=== PATIENT | male | born 1970 | race Two or more races ===

== ENCOUNTER 2017-02-09 15:51 | Inpatient (IN) | payer OTHER ==
[~2017-02-09] VITALS: Ht 175.3 cm; Wt 87.2 kg
[2017-02-09] MEDS ORDERED: TDAP [DIPH/PERTUSSIS/TET] 0.5 ML VIAL IM ONE ×2 (16:19→16:30)
[2017-02-09 16:53] LABS: BASOPHILS # (AUTO) 0.1 /CMM (0.0-0.2); EOSINOPHILS # (AUTO) 0.1 /CMM (0.0-0.7); EOSINOPHILS % (AUTO) 0.4 % (0.0-6.0); HEMATOCRIT 45 % (39-51); HEMOGLOBIN 14.4 g/dL (13.5-17.5); LYMPHOCYTES # (AUTO) 2.5 /CMM (0.8-4.8); MEAN CORPUSCULAR HEMOGLOBIN 27 PG (26.0-33.0); MEAN CORPUSCULAR HGB CONC 32 g/dl (31.0-36.0); MEAN CORPUSCULAR VOLUME 83 fL (80-96); MONOCYTES # (AUTO) 0.8 /CMM (0.1-1.30); MONOCYTES % (AUTO) 5.3 % (2.0-12.0); NEUTROPHILS # (AUTO) 11.3 /CMM (1.8-8.9); NEUTROPHILS % (AUTO) 76.3 % (43.0-81.0); PLATELET COUNT (AUTO) 300 /CMM (150-450); RDW COEFFICIENT OF VARIATION 14.5 (11.5-15.0); RED BLOOD CELL COUNT(AUTO) 5.36 MIL/uL (4.5-6.0); WHITE BLOOD COUNT (AUTO) 14.8 K/uL (4.3-11.0)
[2017-02-09 16:54] LABS: APPEARANCE,URINE Clear (CLEAR); BILIRUBIN,URINE Negative (NEGATIVE); BLOOD, URINE Trace-lysed Ery/uL (NEGATIVE); COLOR,URINE Yellow (YELLOW); KETONES,URINE 15 (NEGATIVE); LEUKOCYTE ESTERASE ,URINE Negative (NEGATIVE); NITRITE, URINE Negative (NEGATIVE); PROTEIN,URINE 30 mg/dl (NEGATIVE); UGLUCOSE Negative (NEGATIVE); UROBILINOGEN,URINE 0.2 EU/dL (0.2)
[2017-02-09 17:05] LABS: PROTHROMBIN TIME 10.4 SECS (9.5-12.7)
[2017-02-09 17:10] LABS: ALANINE AMINOTRANSFERASE 30 U/L (12-78); ALKALINE PHOSPHATASE 84 U/L (46-116); ASPARTATE AMINOTRANSFERASE 26 U/L (15-37); BILIRUBIN,DIRECT 0.1 mg/dL (0.0-0.2); BILIRUBIN,TOTAL 0.8 mg/dL (0.2-1.0); CALCIUM, SERUM 9.3 mg/dL (8.5-10.1); CARBON DIOXIDE 23 mmol/L (21-32); CHLORIDE 101 mmol/L (98-107); CREATININE 0.9 mg/dL (0.6-1.3); GLUCOSE 124 mg/dL (74-106); LIPASE 137 U/L (73-393); POTASSIUM 3.7 mmol/L (3.5-5.1); SODIUM SERUM 135 mmol/L (136-145); TOTAL PROTEIN, SERUM 8.3 g/dL (6.4-8.2); TROPONIN I < 0.017 ng/mL (0.00-0.056); UREA NITROGEN, BLOOD 11 mg/dL (7-18)
[2017-02-09 17:30] LABS: BACTERIA,URINE Rare /HPF (None Seen); RBC,URINE 0-2 /HPF (0-2); SQUAMOUS EPITHELIAL CELL,UR None Seen /HPF (None Seen); WBC,URINE NONE SEEN /HPF (0-3)
[2017-02-09] MEDS ORDERED: ATEN25TA PO (18:45)
[2017-02-09] MEDS ORDERED: LISI40TA4 PO (18:45)
[2017-02-09] MEDS ORDERED: SERT50TA PO (18:45)
[2017-02-09] MEDS ORDERED: ATOR10TA PO (18:45)
[2017-02-09] MEDS ORDERED: CAPT25TA3 PO (18:58)
[2017-02-09] MEDS ORDERED: DEXT10TA18 PO (18:58)
[2017-02-09 20:00] VITALS: BP 119/62
[2017-02-09] MEDS ORDERED: ONDANSETRON HCL/PF 4 MG/2 ML VIAL IVP PRN (20:30)
[2017-02-09] MEDS ORDERED: Z GUARD REMEDY 2 OZ OINT TP PRN (20:30)
[2017-02-09] MEDS ORDERED: ACETAMINOPHEN 325 MG TABLET PO PRN (20:30)
[2017-02-09] MEDS ORDERED: MAG HYDROX/AL HYDROX/SIMETH 30 ML UDC PO PRN (20:30)
[2017-02-09] MEDS ORDERED: MAGNESIUM HYDROXIDE 30 ML UDC PO PRN (20:30)
[2017-02-09] MEDS: ZOLPIDEM TARTRATE 5 MG TABLET PO PRN (22:14)
[2017-02-10] VITALS: BP 162/69
[2017-02-10] MEDS ORDERED: IV NS 0.9% 1,000 ML BAG IV ONE
[2017-02-10 04:00] VITALS: BP 140/87
[2017-02-10 08:00] VITALS: BP 160/97
[2017-02-10 08:33] LABS: BASOPHILS # (AUTO) 0.1 /CMM (0.0-0.2); BASOPHILS % (AUTO) 0.4 % (0.0-2.0); EOSINOPHILS # (AUTO) 0.1 /CMM (0.0-0.7); EOSINOPHILS % (AUTO) 0.8 % (0.0-6.0); HEMATOCRIT 46 % (39-51); HEMOGLOBIN 14.7 g/dL (13.5-17.5); LYMPHOCYTES # (AUTO) 2.6 /CMM (0.8-4.8); LYMPHOCYTES % (AUTO) 20.5 % (20.0-44.0); MEAN CORPUSCULAR HEMOGLOBIN 27 PG (26.0-33.0); MEAN CORPUSCULAR HGB CONC 32 g/dl (31.0-36.0); MEAN CORPUSCULAR VOLUME 84 fL (80-96); MONOCYTES # (AUTO) 0.9 /CMM (0.1-1.30); MONOCYTES % (AUTO) 6.7 % (2.0-12.0); NEUTROPHILS # (AUTO) 9.2 /CMM (1.8-8.9); NEUTROPHILS % (AUTO) 71.6 % (43.0-81.0); PLATELET COUNT (AUTO) 270 /CMM (150-450); RDW COEFFICIENT OF VARIATION 15.4 (11.5-15.0); RED BLOOD CELL COUNT(AUTO) 5.44 MIL/uL (4.5-6.0); WHITE BLOOD COUNT (AUTO) 12.8 K/uL (4.3-11.0)
[2017-02-10 08:40] LABS: CALCIUM, SERUM 8.5 mg/dL (8.5-10.1); CREATININE 0.8 mg/dL (0.6-1.3); MAGNESIUM 1.6 mg/dL (1.8-2.4); PHOSPHORUS 3.4 mg/dL (2.5-4.9); POTASSIUM 3.9 mmol/L (3.5-5.1)
[2017-02-10] MEDS: CAPTOPRIL 12.5 MG TABLET PO SCH (08:43)
[2017-02-10] MEDS: ATENOLOL 25 MG TABLET PO SCH (08:46)
[2017-02-10] MEDS ORDERED: NICOTINE PATCH (7MG) 7 MG PATCH.TD24 TD SCH (11:00)
[2017-02-10] MEDS: NICOTINE PATCH (14MG) 14 MG PATCH.TD24 TD SCH (11:15)
[2017-02-10 12:00] VITALS: BP 157/88
[2017-02-10] MEDS: Magnesium 1GM/D5W 100ML PREMIX 100 ML IV SCH ×2 (12:06→13:09)
[2017-02-10] MEDS: LORAZEPAM 0.5 MG TABLET PO PRN ×2 (13:48→20:34)
[2017-02-10] MEDS: THIAMINE HCL 100 MG TABLET PO SCH (13:48)
[2017-02-10] MEDS: HYDROCODONE/APAP 5/325MG 1 EACH TABLET PO PRN ×2 (15:28→20:34)
[2017-02-10 16:00] VITALS: BP 128/83
[2017-02-10 20:00] VITALS: BP 130/72
[2017-02-10] MEDS: ZOLPIDEM TARTRATE 5 MG TABLET PO PRN (23:01)
[2017-02-11] VITALS: BP 139/70
[2017-02-11] MEDS: HYDROCODONE/APAP 5/325MG 1 EACH TABLET PO PRN ×2 (01:33→05:36)
[2017-02-11 04:00] VITALS: BP 158/91
[2017-02-11] MEDS: LORAZEPAM 0.5 MG TABLET PO PRN ×2 (05:36→12:36)
[2017-02-11 07:26] LABS: BASOPHILS # (AUTO) 0.1 /CMM (0.0-0.2); BASOPHILS % (AUTO) 0.8 % (0.0-2.0); EOSINOPHILS # (AUTO) 0.1 /CMM (0.0-0.7); EOSINOPHILS % (AUTO) 1.1 % (0.0-6.0); HEMATOCRIT 46 % (39-51); LYMPHOCYTES # (AUTO) 2.9 /CMM (0.8-4.8); LYMPHOCYTES % (AUTO) 24.9 % (20.0-44.0); MEAN CORPUSCULAR HEMOGLOBIN 27 PG (26.0-33.0); MEAN CORPUSCULAR HGB CONC 32 g/dl (31.0-36.0); MEAN CORPUSCULAR VOLUME 84 fL (80-96); MONOCYTES # (AUTO) 0.8 /CMM (0.1-1.30); MONOCYTES % (AUTO) 7.4 % (2.0-12.0); NEUTROPHILS # (AUTO) 7.6 /CMM (1.8-8.9); NEUTROPHILS % (AUTO) 65.8 % (43.0-81.0); PLATELET COUNT (AUTO) 258 /CMM (150-450); RDW COEFFICIENT OF VARIATION 15.3 (11.5-15.0); WHITE BLOOD COUNT (AUTO) 11.5 K/uL (4.3-11.0)
[2017-02-11 07:45] LABS: CALCIUM, SERUM 8.3 mg/dL (8.5-10.1); CREATININE 0.9 mg/dL (0.6-1.3); MAGNESIUM 1.9 mg/dL (1.8-2.4); POTASSIUM 3.7 mmol/L (3.5-5.1)
[2017-02-11 08:00] VITALS: BP 146/98
[2017-02-11] MEDS: NICOTINE PATCH (14MG) 14 MG PATCH.TD24 TD SCH (08:46)
[2017-02-11] MEDS: THIAMINE HCL 100 MG TABLET PO SCH (08:47)
[2017-02-11] MEDS: CAPTOPRIL 12.5 MG TABLET PO SCH (08:47)
[2017-02-11] MEDS: ATENOLOL 25 MG TABLET PO SCH (08:47)
[2017-02-11 10:02] VITALS: BP 146/98
[2017-02-11] MEDS ORDERED: THIA100T74 PO (11:52)
[2017-02-11 12:00] VITALS: BP_SYST 125; BP_SYST 128; BP_DIAS 72
== END 2017-02-11 14:04 | DRG 74 ==
LOC: ER 15:53 → TELE1 19:30
PROVIDERS: ADMIT Family Medicine; ATTEND Family Medicine
DX: G90.8 Other disorders of autonomic nervous system (principal); R56.9 Unspecified convulsions; K86.1 Other chronic pancreatitis; E83.42 Hypomagnesemia; K86.89 Other specified diseases of pancreas; I10 Essential (primary) hypertension; D72.829 Elevated white blood cell count, unspecified; Y90.9 Presence of alcohol in blood, level not specified; F10.20 Alcohol dependence, uncomplicated; M48.00 Spinal stenosis, site unspecified; Z72.0 Tobacco use; Z79.899 Other long term (current) drug therapy; M47.9 Spondylosis, unspecified; F19.10 Other psychoactive substance abuse, uncomplicated; R73.9 Hyperglycemia, unspecified
CPT/HCPCS: 36415; 70450-TC; 71010-TC; 71250-TC; 72125-TC; 80048-TC; 80061-TC; 80076-TC; 80305; 81000-TC; 82962-TC; 83690-TC; 83735-TC; 84100-TC; 84484-TC; 85025-TC; 85730-TC; 87081-TC; 93880-TC; 95819-TC; A4606; G0480; J3475; J7030; Z7610

== ENCOUNTER 2018-02-16 15:53 | Emergency (ER) | payer OTHER ==
[~2018-02-16] VITALS: Ht 172.7 cm; Wt 79.4 kg
[~2018-02-16 15:53] MED LIST: ATEN25TA PO; CAPT25TA3 PO; DEXT10TA18 PO; THIA100T74 PO
[2018-02-16] MEDS ORDERED: PANTOPRAZOLE 40 MG TABLET.DR PO ONE ×2 (16:30→16:33)
[2018-02-16 17:55] VITALS: BP 138/85
== END 2018-02-16 18:14 ==
LOC: ER 15:55
DX: L03.116 Cellulitis of left lower limb (principal); L03.115 Cellulitis of right lower limb; R10.13 Epigastric pain; F17.200 Nicotine dependence, unspecified, uncomplicated; I10 Essential (primary) hypertension; E11.9 Type 2 diabetes mellitus without complications; F10.20 Alcohol dependence, uncomplicated; Y90.9 Presence of alcohol in blood, level not specified; Z90.49 Acquired absence of other specified parts of digestive tract
CPT/HCPCS: 93005; 99283; A4606; Z7610

== ENCOUNTER 2022-04-18 07:22 | Emergency (ER) | payer SELFPAY ==
[~2022-04-18] VITALS: Ht 170.2 cm; Wt 97.5 kg
--- NOTE | 2022-04-18 08:24 | NUR ---
VENOUS DOPPLER ON LLE ONGOING AT BEDSIDE.
[2022-04-18 09:06] VITALS: BP 172/116
--- NOTE | 2022-04-18 09:25 | NUR ---
VENOUS DOPPLER ON LLE - FOR DVT
[2022-04-18] MEDS ORDERED: NAPR-1192 PO (09:52)
--- NOTE | 2022-04-18 11:00 | NUR ---
BIBA [id number] "Left Leg/LE pain x2wks worse now"
--- NOTE | 2022-04-18 12:51 | NUR ---
PATIENT ELOPED AT 1000 DR JONES AWARE.
== END 2022-04-18 10:00 | disposition left against medical advice (07) ==
LOC: ER 07:24
DX: M25.562 Pain in left knee (principal); M79.662 Pain in left lower leg; I10 Essential (primary) hypertension; Z79.899 Other long term (current) drug therapy
CPT/HCPCS: 73564-TC; 93971-TC